=== PATIENT | female | born 1975 | race Caucasian/White ===

== ENCOUNTER 2016-11-27 10:33 | Emergency (ER) | payer OTHER, BC ==
--- NOTE | 2016-11-27 10:56 | ED Physician Documentation ---
PD HPI LOWER EXT INJURY - Stated complaint Stated Complaint: LEG INJ - Chief complaint Chief Complaint: Ext Problem - History obtained from History obtained from: Patient - History of Present Illness PD HPI LOW EXT INJURY LOCATION: Left, Calf Type of injury: Twist (pushing cart of items and it lurched going over bump, and she had to stop it quickly. [place] a sudden pop and pain in calf. Hurts for plantar flexion, but is able to do it. No direct impact.) Where injury occurred: Work Timing - onset: Today Timing - duration: Hours (1-2) Timing - details: Abrupt onset, Still present Worsened by: Palpating, Other (plantarflexion at ankle.) Associated symptoms: No: Weakness, Numbness, Swelling, Discolored Similar symptoms before: Has not had sx before Recently seen: Not recently seen Review of Systems Constitutional: denies: Fever, Chills Skin: denies: Abrasion (s), Laceration (s) Musculoskeletal: denies: Back pain Neurologic: denies: Focal weakness, Numbness PD PAST MEDICAL HISTORY - Past Medical History Cardiovascular: None Endocrine/Autoimmune: None Musculoskeletal: None - Present Medications Home Medications: Ambulatory Orders Medication Instructions Recorded Confirmed Naproxen [Naprosyn] 500 mg PO BID #20 tablet 11/27/16 - Allergies Allergies/Adverse Reactions: Allergies Allergy/AdvReac Type Severity Reaction Status Date / Time codeine Allergy Unknown Verified 11/27/16 10:47 - Social History Does the pt smoke?: No Smoking Status: Never smoker PD ED PE NORMAL - General General: Alert and oriented X 3, Well developed/nourished, Other (limping gait favoring left leg some. ) - Back Back: No spinal TTP - Derm Derm: Normal color, Warm and dry - Extremities Extremities: Other (left calf medially upper aspect with tenderness. Achilles/ lower calf not tender. Some tenderness to fibular side as well. Knee not tender and no pain with ligament testing. ) - Neuro Neuro: No motor deficit, No sensory deficit - Psych Psych: Normal mood, Normal affect Results - Vitals Vitals: Vital Signs - 24 hr 11/27/16 11/27/16 10:36 12:09 Temperature 36 C L 36.8 C Heart Rate 70 66 Respiratory 18 18 Rate Blood Pressure 113/75 107/72 O2 Saturation 100 100 Oxygen O2 Source Room air - Rads (name of study) tib fib Radiology: Prelim report reviewed, EMP read contemporaneously (no fractures) PD MEDICAL DECISION MAKING - ED course Complexity details: considered differential (She feels she can work with limited standing and I would have her not do lifting/pushing as would be more strenuous on calf muscles. ), d/w patient Departure - Departure Disposition: 01 Home, Self Care Clinical Impression: Gastrocnemius muscle tear Qualifiers: Encounter type: initial encounter Laterality: left Qualified Code(s): S86.812A - Strain of other muscle(s) and tendon(s) at lower leg level, left leg, initial encounter Condition: Stable Record reviewed to determine appropriate education?: Yes Instructions: ED Strain Muscle Ext Follow-Up: Samia Freitas PA-C [Primary Care Provider] - Prescriptions: Naproxen [Naprosyn] 500 mg PO BID #20 tablet Comments: No prolonged standing nor heavy lifting/ push-pull as those use calf muscles more. Naproxen or Ibuprofen twice daily for 7-10 days. Activity as able other than that. Add Tylenol as needed for pain. This should hurt less after several days to a week, but will likely take 2-3 weeks to fully heal/ stop being sore. Progress activity and use as able after a week. Recheck if not improved reasonably well over the next week. Forms: Activity restrictions Discharge Date/Time: 11/27/16 12:12
[2016-11-27] MEDS ORDERED: IBUPROFEN 600 MG TABLET PO STA (11:26)
[2016-11-27] MEDS ORDERED: ACETAMINOPHEN 325 MG TABLET PO STA (11:26)
[2016-11-27] MEDS ORDERED: ACETAMINOPHEN 325 MG TABLET PO ONE (11:28)
[2016-11-27] MEDS ORDERED: IBUPROFEN 600 MG TABLET PO ONE (11:28)
--- NOTE | 2016-11-27 12:00 | XRAY Preliminary Report ---
Exam: XR Tib/Fib LT IMPRESSION: Normal tibia/fibula radiography. [facility] SITE ID: [id number]
--- NOTE | 2016-11-27 12:03 | XRAY Report ---
EXAM: LEFT TIBIA/FIBULA RADIOGRAPHY EXAM DATE: 11/27/2016 11:44 AM. CLINICAL HISTORY: Left calf pain abruptly at work. COMPARISON: None. TECHNIQUE: 2 views. FINDINGS: Bones: Normal. No fracture or bone lesion. Joints: The visualized knee and ankle joints are normal. No effusions. Soft Tissues: Normal. No soft tissue swelling. IMPRESSION: Normal tibia/fibula radiography. [facility] Referring Provider Line: [phone] SITE ID: [id number]
[2016-11-27 12:10] VITALS: BP 107/72
== END 2016-11-27 12:12 | disposition home or self-care (01) ==
LOC: ED 10:33
DX: S86.112A Strain of other muscle(s) and tendon(s) of posterior muscle group at lower leg level, left leg, initial encounter (principal); X50.0XXA Overexertion from strenuous movement or load, initial encounter; Y92.89 Other specified places as the place of occurrence of the external cause; Y99.0 Civilian activity done for income or pay
CPT/HCPCS: 1040M; 73590; 99283; A9270

== ENCOUNTER 2017-07-05 10:29 | Outpatient (CLI) | payer BC ==
--- NOTE | 2017-07-05 12:27 | XRAY Report ---
DATE OF SERVICE: 07/05/2017 THREE-VIEW RIGHT ELBOW: 07/05/2017 CLINICAL INDICATION: Ulnar nerve lesion. FINDINGS: AP, lateral, oblique views of the right elbow demonstrate no evidence of fracture or dislocation. No effusion is present. No abnormal soft tissue calcification or ossification is appreciated. IMPRESSION: NORMAL RIGHT ELBOW. TD: 07/05/2017 13:25
--- NOTE | 2017-07-05 12:42 | XRAY Report ---
DATE OF SERVICE: 07/05/2017 THREE-VIEW CERVICAL SPINE: 07/05/2017 CLINICAL INDICATION: Radicular arm pain. FINDINGS: AP, lateral, odontoid views of the cervical spine demonstrate mild degenerative disk disease at C4-C5. There is no evidence of fracture or subluxation. The prevertebral soft tissues are unremarkable. IMPRESSION: MILD DEGENERATIVE DISK DISEASE. TD: 07/05/2017 13:41
== END 2017-07-05 10:30 | disposition home or self-care (01) ==
LOC: DI 10:29
PROVIDERS: ATTEND Physician Assistant
DX: G56.20 Lesion of ulnar nerve, unspecified upper limb (principal); M50.321 Other cervical disc degeneration at C4-C5 level
CPT/HCPCS: 72040

== ENCOUNTER 2018-02-25 06:49 | Emergency (ER) | payer BC ==
--- NOTE | 2018-02-25 07:34 | ED Physician Documentation ---
PD HPI SKIN - Stated complaint Stated Complaint: RASH ALL OVER - Chief complaint Chief Complaint: Allergic Rx - History obtained from History obtained from: Patient - History of Present Illness Timing - onset: Yesterday Timing - duration: Days (2) Timing - details: Gradual onset (started at base of big toe and progressed to top of foot as well. Very tender and painful.), Still present Location: [place] Quality / character: Itchy, Discolored, Raised. No: Vesicular Associated symptoms: Myalgias. No: Fever, Dyspnea, Abd pain, N/V/D Contributing factors: Exposed to medication (just finished abx for UTI) Similar symptoms before: Has not had sx before Recently seen: Clinic (for UTI) Review of Systems Constitutional: reports: Myalgias. 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 - Present Medications Home Medications: Ambulatory Orders Medication Instructions Recorded Confirmed Naproxen [Naprosyn] 500 mg PO BID #20 tablet 11/27/16 Cetirizine [ZyrTEC] 10 mg PO DAILY #15 tablet 02/25/18 Dexamethasone [Decadron] 4 mg PO DAILY #5 tablet 02/25/18 Famotidine [Pepcid] 20 mg PO ONCE #15 tablet 02/25/18 - Allergies Allergies/Adverse Reactions: Allergies Allergy/AdvReac Type Severity Reaction Status Date / Time codeine Allergy Unknown Verified 11/27/16 10:47 - Social History Does the pt smoke?: No Smoking Status: Never smoker Does the pt drink ETOH?: No Does the pt have substance abuse?: No - Immunizations Immunizations are current?: Yes - POLST Patient has POLST: No PD ED PE NORMAL - Vitals Vital signs reviewed: Yes - General General: Alert and oriented X 3, No acute distress, Well developed/nourished - HEENT HEENT: Pharynx benign - Cardiac Cardiac: RRR, No murmur - Respiratory Respiratory: Clear bilaterally - Derm Derm: Normal color, Warm and dry, Other (blotchy variable sized, slightly raised, nonvesicular rash diffusely. c/w hives. ) Results - Vitals Vitals: Oxygen O2 Source Room air PD MEDICAL DECISION MAKING - ED course Complexity details: considered differential (the most likely cause is abx just finished the day prior to initial symptoms. ), d/w patient - Sepsis Event Vital Signs: Oxygen O2 Source Room air Departure - Departure Disposition: 01 Home, Self Care Clinical Impression: Allergy to antibiotic Acute allergic reaction Qualifiers: Encounter type: initial encounter Qualified Code(s): T78.40XA - Allergy, unspecified, initial encounter Condition: Stable Record reviewed to determine appropriate education?: Yes Instructions: ED Drug React Allergic Prescriptions: Cetirizine [ZyrTEC] 10 mg PO DAILY #15 tablet Dexamethasone [Decadron] 4 mg PO DAILY #5 tablet Famotidine [Pepcid] 20 mg PO ONCE #15 tablet Comments: This is most likely an allergic reaction to the antibiotic you just finished. Treat it with antihistamines for the symptoms and you can use short acting Benadryl every 6 hours. I would also use long-acting antihistamines of both receptor types (H1 and H2) such as cetirizine and famotidine daily for the next week or so. Steroids daily dexamethasone for the next several days to week until completely better. If this does not go away well or comes back again in the near future, then it may have been triggered by something other than the antibiotic and may require some allergy testing. Discharge Date/Time: 02/25/18 08:43
[2018-02-25] MEDS ORDERED: CETIRIZINE 10 MG TABLET PO STA (07:49)
[2018-02-25] MEDS ORDERED: DEXAMETHASONE 10 MG/ML VIAL PO STA (07:49)
[2018-02-25] MEDS ORDERED: diphenhydrAMINE 25 MG CAPSULE PO STA (07:49)
[2018-02-25] MEDS ORDERED: FAMOTIDINE 20 MG TABLET PO STA (07:49)
[2018-02-25] MEDS ORDERED: CHERRY SYRUP 10 ML UDC PO ONE (07:54)
[2018-02-25 08:42] VITALS: BP 91/59
== END 2018-02-25 08:43 | disposition home or self-care (01) ==
LOC: ED 06:49
DX: T36.95XA Adverse effect of unspecified systemic antibiotic, initial encounter (principal)
CPT/HCPCS: 99283; A9270

== ENCOUNTER 2018-03-14 10:04 | Outpatient (CLI) | payer BC ==
--- NOTE | 2018-03-14 13:05 | Mammography Report ---
Reason: RIGHT BREAST LUMP Procedure Date: 03/14/2018 Accession Number: [id number] / [id number] Procedure: EMILY - Diagnostic Dig Bilat CPT Code: FULL RESULT: EXAM: Diagnostic Dig Bilat focal diagnostic breast ultrasound of the right breast was also performed. DATE: 03/14/2018 10:27 AM CLINICAL HISTORY: 42-year-old female with a palpable lump in her right breast presents for diagnostic mammogram and baseline bilateral mammogram. TECHNIQUE: Bilateral CC and MLO views were obtained. Bilateral exaggerated CC rolled views were obtained. Right spot CC and MLO views were obtained. COMPARISON: Baseline mammogram. FINDINGS: The breasts demonstrate heterogeneously dense fibroglandular parenchyma bilaterally. Corresponding to the palpable marker in the right breast is a hyperdense well-circumscribed 1.9 cm mass which is seen as a 1.8 x 1.4 x 1.6 cm taller than wide hypoechoic well demarcated gently lobulated mass at the 12:00 position on ultrasound. Ultrasound demonstrates adjacent ductal ectasia. This requires biopsy. A focal asymmetry initially seen in the deep right breast at 12:00 resolves with spot views. Diagnostic right breast ultrasound also demonstrates a wider than tall 1.3 cm x 0.5 cm mass which is centrally hyperechoic and 1 cm from the nipple, appearance compatible with a lymph node, typically benign. A simple cyst measuring up to 0.9 cm is seen in the retroareolar region, typically benign. The left cc view demonstrates multiple some of which are partially obscured well-circumscribed hyperdense masses which are difficult to exactly localize on the left MLO view due to dense breast parenchyma and there are number. There is no associated architectural distortion or microcalcification. This requires additional evaluation by ultrasound to determine whether these represent cysts or solid lesions. IMPRESSION: Suspicious abnormality. RECOMMENDATION: Biopsy of the palpable right breast mass by ultrasound guidance. Additionally, the patient should undergo a diagnostic left breast ultrasound. BIRADS CATEGORY 4 STANDARD QUALIFYING STATEMENTS: 1. This examination was not reviewed with the aid of Computer-Aided Detection (CAD). 2. A negative or benign imaging report should not delay biopsy if clinically suspicious findings are present. Consider surgical consultation if warrented. More than 5% of cancers are not identified by imaging. 3. Dense breasts may obscure an underlying neoplasm. 4. This examination was reviewed with the aid of 3D imaging (tomography).
== END 2018-03-14 10:05 | disposition home or self-care (01) ==
LOC: DI 10:04
PROVIDERS: ATTEND Physician Assistant
DX: N63.10 Unspecified lump in the right breast, unspecified quadrant (principal); N60.01 Solitary cyst of right breast
CPT/HCPCS: 76642; 77066

== ENCOUNTER 2018-03-25 11:31 | Outpatient (CLI) | payer BC ==
--- NOTE | 2018-03-25 16:54 | Ultrasound Report ---
Reason: RT BREAST NODULE Procedure Date: 03/25/2018 Accession Number: [id number] / [id number] Procedure: US - Biopsy Breast Core CPT Code: FULL RESULT: PROCEDURE: Ultrasound-guided needle biopsy right breast mass. CLINICAL DATA: Targeted mass measuring 1.9 cm with smooth margins in the 12 o'clock axis of the right breast. Informed consent was obtained. Using standard aseptic technique, both 1% buffered lidocaine and Sensorcaine were injected into the right breast for local anesthesia. A small madisyn was made in the skin with a #11 blade. A 12-gauge several vacuum-assisted device was used to obtain 3 specimens. A specialized biopsy marker clip was placed into the biopsy cavity under ultrasound guidance. The patient was taken to separate mammography machine and a two-view digital mammography was performed to verify the clip placement and any complications. The mammography showed appropriate clip placement. The wound was dressed and ice applied. The patient was observed for approximately 15 minutes, then was discharged from diagnostic imaging Department in good condition following instructions on wound care and obtaining biopsy results. The patient is scheduled to receive the biopsy results from the referring physician. The tissue was sent for histologic analysis. IMPRESSION: Ultrasound-guided biopsy of the right breast. AN ADDENDUM WILL REMAIN TO THIS REPORT WHEN PATHOLOGY IS REVIEWED TO ESTABLISH CONCORDANCE.
--- NOTE | 2018-03-25 16:54 | Ultrasound Report ---
Reason: ABNORMAL MAMMO LT BREAST Procedure Date: 03/25/2018 Accession Number: [id number] / [id number] Procedure: US - Breast Unilateral Limited CPT Code: FULL RESULT: PROCEDURE: Ultrasound-guided needle biopsy right breast mass. CLINICAL DATA: Targeted mass measuring 1.9 cm with smooth margins in the 12 o'clock axis of the right breast. Informed consent was obtained. Using standard aseptic technique, both 1% buffered lidocaine and Sensorcaine were injected into the right breast for local anesthesia. A small madisyn was made in the skin with a #11 blade. A 12-gauge several vacuum-assisted device was used to obtain 3 specimens. A specialized biopsy marker clip was placed into the biopsy cavity under ultrasound guidance. The patient was taken to separate mammography machine and a two-view digital mammography was performed to verify the clip placement and any complications. The mammography showed appropriate clip placement. The wound was dressed and ice applied. The patient was observed for approximately 15 minutes, then was discharged from diagnostic imaging Department in good condition following instructions on wound care and obtaining biopsy results. The patient is scheduled to receive the biopsy results from the referring physician. The tissue was sent for histologic analysis. IMPRESSION: Ultrasound-guided biopsy of the right breast. AN ADDENDUM WILL REMAIN TO THIS REPORT WHEN PATHOLOGY IS REVIEWED TO ESTABLISH CONCORDANCE.
--- NOTE | 2018-03-25 16:54 | Ultrasound Report ---
Reason: ABN MAMMO - BILATERAL BREAST NODULES Procedure Date: 03/25/2018 Accession Number: [id number] / [id number] Procedure: US - Biopsy Breast Ea Addl Core CPT Code: 45357 FULL RESULT: PROCEDURE: Ultrasound-guided needle biopsy right breast mass. CLINICAL DATA: Targeted mass measuring 1.9 cm with smooth margins in the 12 o'clock axis of the right breast. Informed consent was obtained. Using standard aseptic technique, both 1% buffered lidocaine and Sensorcaine were injected into the right breast for local anesthesia. A small madisyn was made in the skin with a #11 blade. A 12-gauge several vacuum-assisted device was used to obtain 3 specimens. A specialized biopsy marker clip was placed into the biopsy cavity under ultrasound guidance. The patient was taken to separate mammography machine and a two-view digital mammography was performed to verify the clip placement and any complications. The mammography showed appropriate clip placement. The wound was dressed and ice applied. The patient was observed for approximately 15 minutes, then was discharged from diagnostic imaging Department in good condition following instructions on wound care and obtaining biopsy results. The patient is scheduled to receive the biopsy results from the referring physician. The tissue was sent for histologic analysis. IMPRESSION: Ultrasound-guided biopsy of the right breast. AN ADDENDUM WILL REMAIN TO THIS REPORT WHEN PATHOLOGY IS REVIEWED TO ESTABLISH CONCORDANCE.
[2018-03-25] MEDS ORDERED: BUFFERED LIDOCAINE 10 ML SYRINGE IU ONE (17:39)
[2018-03-25] MEDS ORDERED: BUPIVACAINE 0.5%-EPI 1:200000 PF 30 ML VIAL SUBQ ONE (17:39)
== END 2018-03-25 11:32 | disposition home or self-care (01) ==
LOC: DI 11:31
PROVIDERS: ATTEND Physician Assistant
DX: D05.01 Lobular carcinoma in situ of right breast (principal); N63.22 Unspecified lump in the left breast, upper inner quadrant
CPT/HCPCS: 19083; 19084; 76642; 77066

== ENCOUNTER 2020-01-29 13:46 | Outpatient (CLI) | payer BC ==
--- NOTE | 2020-01-29 15:16 | XRAY Report ---
PROCEDURE: Cervical Spine Complete INDICATIONS: RADICULAR PAIN, NECK BACK PAIN TECHNIQUE: 7 view(s) of the cervical spine were acquired. COMPARISON: None. FINDINGS: Bones: No fractures or dislocations to the T1 level. The lateral masses of C1 appear intact on the odontoid view. No suspicious bony lesions. There is mild degenerative disc height reduction at C4-5 through C6-7. The oblique views show no significant foraminal stenosis. Flexion and extension imagin g shows no appreciable abnormal subluxation along the cervical spine. There is no evidence of ligamen tous laxity. Soft tissues: No prevertebral soft tissue swelling. IMPRESSION: Mild degenerative disc disease over the middle and lower thirds of the cervical spine, w ithout evidence of prior trauma or ligamentous laxity. Reviewed by: Darrius Washington MD on 01/29/2020 3:15 PM PDT Approved by: Darrius Washington MD on 01/29/2020 3:15 PM PDT Station ID: [id number]
--- NOTE | 2020-01-29 15:22 | XRAY Report ---
PROCEDURE: Thoracic Spine 3 View INDICATIONS: RADICULAR PAIN, NECK BACK PAIN TECHNIQUE: 3 views of the thoracic spine were acquired. COMPARISON: X-ray cervical spine 01/29/2020 FINDINGS: Bones: No fractures or dislocations. No suspicious bony lesions. 12 pairs of ribs are noted, and a ppear intact where visualized. Soft tissues: No paravertebral stripe thickening. IMPRESSION: No acute osseous abnormality. Reviewed by: Nicole Jimenez MD on 01/29/2020 3:21 PM PDT Approved by: Nicloe Jimenez MD on 01/29/2020 3:21 PM PDT Station ID: [id number]
[2020-01-29 20:08] LABS: BASOPHILS % (AUTO) 0.5 %; EOSINOPHILS # (AUTO) 0.1 10^3/uL (0.0-0.7); EOSINOPHILS % (AUTO) 0.8 %; HGB - HEMOGLOBIN 14.6 g/dL (12.0-16.0); LYMPHOCYTES # (AUTO) 2.1 10^3/uL (1.5-3.5); LYMPHOCYTES % (AUTO) 27.9 %; MEAN CORPUSCULAR HEMOGLOBIN 28.5 pg (27.0-31.0); MEAN CORPUSCULAR HGB CONC 32.3 g/dL (32.0-36.0); MEAN CORPUSCULAR VOLUME 88.3 fL (81.0-99.0); MEAN PLATELET VOLUME 10.3 fL (7.9-10.8); MONOCYTES # (AUTO) 0.4 10^3/uL (0.0-1.0); MONOCYTES % (AUTO) 5.6 %; NEUTROPHILS # (AUTO) 4.8 10^3/uL (1.5-6.6); NEUTROPHILS % (AUTO) 64.9 %; PLT - PLATELET COUNT 177 10^3/uL (130-450); RED BLOOD COUNT 5.12 10^6/uL (4.20-5.40); RED CELL DISTRIBUTION WIDTH 12.6 % (12.0-15.0); WHITE BLOOD COUNT 7.5 x10^3/uL (4.8-10.8)
[2020-01-29 20:26] LABS: ALBUMIN 4.5 g/dL (3.2-5.5); ALBUMIN/GLOBULIN RATIO 1.6 (1.0-2.2); BILIRUBIN,TOTAL 0.6 mg/dL (0.2-1.0); CALCIUM 9.7 mg/dL (8.5-10.3); CREATININE 0.7 mg/dL (0.4-1.0); TOTAL PROTEIN 7.3 g/dL (6.7-8.2)
[2020-01-29 20:29] LABS: HB2 TOTAL 14.8 g/dL; HEMOGLOBIN A1C 0.49 g/dL; HEMOGLOBIN A1C % 5.2 % (4.6-6.2)
== END 2020-01-29 13:47 | disposition home or self-care (01) ==
LOC: DI.S 13:46
PROVIDERS: ATTEND Family Medicine
DX: M50.321 Other cervical disc degeneration at C4-C5 level (principal); M54.2 Cervicalgia; C50.919 Malignant neoplasm of unspecified site of unspecified female breast; E04.1 Nontoxic single thyroid nodule
CPT/HCPCS: 36415; 72050; 72072; 80053; 83036; 84443; 85025; 85651; 86140

== ENCOUNTER 2021-12-25 08:00 | Outpatient (CLI) | payer BC | END 2021-12-25 23:59 | disposition home or self-care (01) | LOC: LAB.S 08:00 | PROVIDERS: ATTEND Physician Assistant | DX: R30.0 Dysuria (principal) | CPT/HCPCS: 87086; 87181 ==

== ENCOUNTER 2023-10-28 07:00 | Outpatient (CLI) | payer BC ==
--- NOTE | 2023-10-28 21:05 | XRAY Report ---
PROCEDURE: Foot 3+V RT INDICATIONS: RIGHT FOOT SPRAIN TECHNIQUE: 3 views of the foot were acquired. COMPARISON: None. FINDINGS: Bones: No fractures or dislocations. No suspicious bony lesions. Tiny dorsal calcaneal enthesophyt e is seen. Soft tissues: No tibiotalar joint effusion. Achilles tendon appears normal. IMPRESSION: No acute bony abnormality. Reviewed by: Thad Hester MD on 10/28/2023 9:04 PM PDT Approved by: Thad Hester MD on 10/28/2023 9:04 PM PDT Station ID: [id number]
== END 2023-10-28 23:59 | disposition home or self-care (01) ==
LOC: DI.S 07:00
PROVIDERS: ATTEND Emergency Medicine
DX: S93.691A Other sprain of right foot, initial encounter (principal)